=== PATIENT | male | born 1945 | race Caucasian/White ===

== ENCOUNTER 2020-07-08 17:11 | Emergency (ER) | payer MEDICARE, BC ==
[2020-07-08] MEDS ORDERED: Acetaminophen 500 MG TAB ONE (17:37)
[2020-07-08] MEDS ORDERED: Dexamethasone 4 MG TAB ONE (17:37)
[2020-07-08 17:41] LABS: #Lymphocytes 0.8 thou/uL (1.20-3.40); #Monocytes 0.3 thou/uL (0.11-0.59); #Neutrophils 3.7 thou/uL (1.40-6.50); %Basophils 0.5 % (0.0-1.0); %Lymphocytes 17.3 % (21.0-51.0); %Monocytes 6.9 % (0.0-10.0); %Neutrophils 75.3 % (42.0-75.0); Hemoglobin 14.7 g/dL (14.0-18.0); Mean Corpuscular HGB CONC 31.8 g/dL (32.0-36.0); Mean Corpuscular Hemoglobin 28.5 pg (27.0-31.0); Mean Corpuscular Volume 89.7 fL (78.0-98.0); Mean Platelet Volume 8.4 fL (7.4-10.4); Platelet Count 138 thou/uL (130-400); RBC Distribution Width 12.4 % (11.5-14.5); Red Blood Cell (RBC) Count 5.17 mill/uL (4.70-6.10); White Blood Cell (WBC) Count 4.8 thou/uL (4.8-10.8)
[2020-07-08 17:56] LABS: Anion Gap 13 mmol/L (10-20); BUN (Urea Nitrogen) 18 mg/dL (8.4-25.7); Calc. Creatinine Clearance 0 mL/min (70-130); Carbon Dioxide 27 mmol/L (23-31); Chloride 99 mmol/L (98-107); Potassium 4.1 mmol/L (3.5-5.1); Sodium 135 mmol/L (136-145)
[2020-07-08 17:57] LABS: ALT (SGPT) 42 U/L (8-55); AST (SGOT) 49 U/L (5-34); Albumin 3.6 g/dL (3.4-4.8); Alkaline Phosphatase 70 U/L (40-110); Bilirubin, Total 0.4 mg/dL (0.2-1.2); Globulin 3.1 g/dL (2.4-3.5); Glucose 127 mg/dL (83-110); Protein, Total 6.7 g/dL (5.8-8.1)
[2020-07-08 17:59] LABS: Base Excess-Venous 1.4 mmol/L (-2.0 to 3.0); Bicarbonate (HCO3v) 28.1 mmol/L (22.0-28.0); CO2 Tension (PvCO2) 50.8 mmHg (40.0-50.0); Calcium, Ionized 1.06 mmol/L (1.15-1.33); Chloride 97 mmol/L (98-107); Hemoglobin - Calc 15.1 g/dL (14.0-18.0); Sodium 134 mmol/L (138-145); T. Carbon Dioxide 29.6 mmol/L (22.0-28.0); vO2 Saturation-calc 37.3 % (60.0-85.0)
--- NOTE | 2020-07-08 22:44 | RAD ---
PORTABLE CHEST: Date: 07/08/2020 An AP portable film at 1751 hours is compared with the 03/21/2015 study. Diffuse patchy infiltrates are seen bilaterally in the lungs. They are moderate in coverage and densi ty. Given that this patient is COVID-positive, the findings suggest COVID pneumonia. No effusions are present. The heart size is unchanged from before. The vessels themselves do not appear to be very co ngested. IMPRESSION: Interval development of patchy pulmonary infiltrates bilaterally of a moderate degree. COVID pneumoni a is presumed given the clinical history. POS: HOME
== END 2020-07-08 20:25 | disposition short-term general hospital (02) ==
LOC: BURERS 17:11
DX: U07.1 COVID-19 (principal); R09.02 Hypoxemia; E03.9 Hypothyroidism, unspecified; I10 Essential (primary) hypertension; E78.00 Pure hypercholesterolemia, unspecified; N40.0 Benign prostatic hyperplasia without lower urinary tract symptoms; Z79.899 Other long term (current) drug therapy
CPT/HCPCS: 71045; 80053; 82330; 82803; 83605; 83880; 85025; 87040; 94640; J7620; J8540